=== PATIENT | male | born 1970 | race Caucasian/White ===

== ENCOUNTER 2018-07-04 14:30 | Emergency (ER) | payer OTHER, MEDICAID, SELFPAY ==
[2018-07-04 14:37] VITALS: BP 157/89; PULSE 60; RESP 24; TEMP 36.2; O2SAT 100; BMI 26.3
[2018-07-04 16:30] VITALS: BP 140/79; PULSE 67; O2SAT 99
[2018-07-04 17:00] VITALS: BP 142/79; PULSE 63; O2SAT 99
[2018-07-04 17:30] VITALS: BP 133/93; PULSE 74; O2SAT 99
--- NOTE | 2018-07-04 17:46 | DI.RAD.S_ITS ---
PROCEDURE: XR CERVICAL SPINE 2V OR 3V INDICATIONS: pain/spasm, no trauma TECHNIQUE: 4 view(s) of the cervical spine were acquired. COMPARISON: None. FINDINGS: Bones: No fractures or dislocations to the C7 level. The lateral masses of C1 appear intact on the odontoid view. No suspicious bony lesions. Soft tissues: No prevertebral soft tissue swelling. IMPRESSION: No acute fracture. No osseous lesion. If clinical suspicion and/or symptoms persist, further assessment with repeat plainfilms, or advanced imaging (e.g., CT, MRI, or bone scan) may be helpful for further assessment. Dictated by: Ezequiel Donahue M.D. on 07/04/2018 at 18:43 Approved by: Ezequiel Donahue M.D. on 07/04/2018 at 18:44
--- NOTE | 2018-07-04 17:54 | ED_ITS ---
HPI - Neck Pain/Injury <Hilaria Almonte PA-C - Last Filed: 07/04/18 22:16> General Chief Complaint: Neck Pain/Injury Stated Complaint: severe neck pain Time Seen by Provider: 07/04/18 17:30 Source: patient Mode of arrival: ambulatory Limitations: no limitations History of Present Illness HPI Narrative: This 47-year-old male complains of neck pain and spasm. He states that this started 6 days ago, he turned and felt a sharp pain in his neck, and states he could feel that through his forehead and ears were ringing. He states that at that time pain felt so severe he was vomiting intermittently for about 4 hours, but then seemed to start to get a little bit better so he has not sought treatment. He states that about 24 hours ago, this seemed to get worse again. He felt like it was related to barometric pressure as he is sensitive to that, but states it did not improve today so he came in. He states that he has chronic neck pain but has never sought evaluation or treatment for it. States that pain feels like it is in his central neck as well as the musculature. He states at times he feels like it will move across the neck and top of the shoulders. He denies weakness in his extremities, states he can have some occasional numbness in fingers bilaterally, none currently. He denies any fever or rash. He denies any groin numbness, bowel or bladder changes. He denies any specific trauma, eating and drinking normally Related Data Previous Rx's Medication Instructions Recorded diazepam 5 mg PO BID-TID PRN #5 tab 07/04/18 lidocaine 2 patch TOP DAILY #30 each 07/04/18 oxycodone-acetaminophen [Endocet] 1 tab PO Q6H #7 tab 07/04/18 Allergies Allergy/AdvReac Type Severity Reaction Status Date / Time No Known Drug Allergies Allergy Verified 07/04/18 16:35 Review of Systems <Hliaria Almonte PA-C - Last Filed: 07/04/18 22:16> Review of Systems ROS Unobtainable: All systems reviewed & are unremarkable except as noted in HPI and below PFSH <Hilaria Almonte PA-C - Last Filed: 07/04/18 22:16> Medical History (Updated 07/04/18 @ 20:11 by Hilaria Almonte PA-C) Anxiety and depression (Chronic) Chronic neck pain (Chronic) No pertinent family history (Chronic) Surgical History (Updated 07/04/18 @ 17:54 by Hilaria Almonte PA-C) No pertinent past surgical history (Chronic) Social History Smoking Status: Current every day smoker Social History Smoking Status: Current every day smoker Exam <Hilaria Almonte PA-C - Last Filed: 07/04/18 22:16> Narrative Exam Narrative: GENERAL APPEARANCE: Patient appears anxious, but in no acute distress. LUNGS: Clear to auscultation bilaterally. HEART: Rate and rhythm regular without murmur, normal S1 and S2, no S3 or S4. MUSCULOSKELETAL: Generalized tenderness over the cervical spine, paraspinal musculature, proximal trapezius insertions. He has full range of motion of the C-spine with some and point tenderness. Full range of motion of the upper extremities. No tenderness over the thoracic or lumbar spine. Normal sit to stand and gait. Strength 5/5 throughout bilateral upper extremities. NEUROLOGIC: Sensation is grossly intact over the extremities, extremity DTRs 2+ throughout Initial Vital Signs Initial Vital Signs: Vital Signs Temperature 97.2 F L 07/04/18 14:37 Pulse Rate 60 07/04/18 14:37 Respiratory Rate 24 07/04/18 14:37 Blood Pressure 157/89 H 07/04/18 14:37 Pulse Oximetry 100 07/04/18 14:37 <Robert Henning DO - Last Filed: 07/04/18 23:22> Initial Vital Signs Initial Vital Signs: Vital Signs Temperature 97.2 F L 07/04/18 14:37 Pulse Rate 60 07/04/18 14:37 Respiratory Rate 24 07/04/18 14:37 Blood Pressure 157/89 H 07/04/18 14:37 Pulse Oximetry 100 07/04/18 14:37 Course <Hilaria Almonte PA-C - Last Filed: 07/04/18 22:16> Additional Information: Patient has significant chronic neck pain. no evidence of neurologic compromise, no febrile illness, but has been worse for the last 6 days. He describes intermittent spasm sensation and also tension headache. he has taken benzodiazepines and Endocet in the past without problems and did get some relief with these along with lidocaine patches. Advised not to drive while on these medications, and he will see his PCP for follow-up this week as he may need further workup or referral depending on progress. He agreed to return if any acutely worsening symptoms Orders Ordered: ED Orders 07/04/18 17:46 XR cervical spine 2V or 3V Stat Discontinued Medications Diazepam (Valium) 5 mg PO NOW ONE Stop: 07/04/18 17:47 Last Admin: 07/04/18 17:55 Dose: 5 mg Diazepam (Valium) 5 mg PO NOW ONE Stop: 07/04/18 19:22 Last Admin: 07/04/18 19:37 Dose: 5 mg Ketorolac Tromethamine (Toradol) 60 mg IM NOW ONE Stop: 07/04/18 17:47 Last Admin: 07/04/18 17:55 Dose: 60 mg Lidocaine (Lidoderm) 2 each TOP NOW ONE Stop: 07/04/18 19:48 Last Admin: 07/04/18 19:52 Dose: 2 each Oxycodone/Acetaminophen (Percocet 5/325) 1 tab PO NOW ONE Stop: 07/04/18 19:22 Last Admin: 07/04/18 19:38 Dose: 1 tab Vital Signs - 8 hr 07/04/18 16:30 07/04/18 17:00 07/04/18 17:30 Pulse Rate 67 63 74 Blood Pressure [Right Arm] 140/79 142/79 H 133/93 H Pulse Oximetry 99 99 99 07/04/18 19:30 Pulse Rate 74 Blood Pressure [Right Arm] 144/86 H Pulse Oximetry 99 <Robert Henning DO - Last Filed: 07/04/18 23:22> Orders Ordered: ED Orders 07/04/18 17:46 XR cervical spine 2V or 3V Stat Discontinued Medications Diazepam (Valium) 5 mg PO NOW ONE Stop: 07/04/18 17:47 Last Admin: 07/04/18 17:55 Dose: 5 mg Diazepam (Valium) 5 mg PO NOW ONE Stop: 07/04/18 19:22 Last Admin: 07/04/18 19:37 Dose: 5 mg Ketorolac Tromethamine (Toradol) 60 mg IM NOW ONE Stop: 07/04/18 17:47 Last Admin: 07/04/18 17:55 Dose: 60 mg Lidocaine (Lidoderm) 2 each TOP NOW ONE Stop: 07/04/18 19:48 Last Admin: 07/04/18 19:52 Dose: 2 each Oxycodone/Acetaminophen (Percocet 5/325) 1 tab PO NOW ONE Stop: 07/04/18 19:22 Last Admin: 07/04/18 19:38 Dose: 1 tab Vital Signs - 8 hr 07/04/18 16:30 07/04/18 17:00 07/04/18 17:30 Pulse Rate 67 63 74 Blood Pressure [Right Arm] 140/79 142/79 H 133/93 H Pulse Oximetry 99 99 99 07/04/18 19:30 Pulse Rate 74 Blood Pressure [Right Arm] 144/86 H Pulse Oximetry 99 MDM - Neck Pain/Injury <Hilaria Almonte PA-C - Last Filed: 07/04/18 22:16> Imaging Data Cspine: Radiologist's impression: [address] [address] XRay Report Signed Patient: Tuan Tyler [facility]#: [id number] : 1970Acct:[id number] Age/Sex: 47 / MDate of Service: 07/04/18 Loc: ED Accession Number: [id number] Procedure: XR cervical spine 2V or 3V Ordering Provider: Hilaria Almonte P.A-C PROCEDURE: XR CERVICAL SPINE 2V OR 3V INDICATIONS: pain/spasm, no trauma TECHNIQUE: 4 view(s) of the cervical spine were acquired. COMPARISON: None. FINDINGS: Bones: No fractures or dislocations to the C7 level. The lateral masses of C1 appear intact on the odontoid view. No suspicious bony lesions. Soft tissues: No prevertebral soft tissue swelling. IMPRESSION: No acute fracture. No osseous lesion. If clinical suspicion and/or symptoms persist, further assessment with repeat plainfilms, or advanced imaging (e.g., CT, MRI, or bone scan) may be helpful for further assessment. Dictated by: Ezequiel Donahue M.D. on 07/04/2018 at 18:43 Approved by: Ezequiel Donahue M.D. on 07/04/2018 at 18:44 Discharge Plan Departure Patient Disposition: Home Clinical Impression: Neck and shoulder pain, Muscle spasm Discharge Date/Time: 07/04/18 20:25 Interventions: ED Discharge Assessment Last Done: 07/04/18 20:24 Instructions: DI for Neck Pain, DI for Muscle Spasm Activity Restrictions/Additional Instructions: Please return as we talked about if you have any acutely worsening symptoms, or new symptoms such as weakness in your extremities, numbness in your groin or inability to urinate. Otherwise, please follow-up with your PCP in the next day or two (call first thing tomorrow and let the office know that you were seen in the ED). You can use the diazepam for muscle spasm and the oxycodone/acetaminophen for pain as needed since you have used these in the past. Continue ibuprofen 800 mg every 8 hours as well. also please try the topical anesthetic patches for 12 hours daily since they seem to help somewhat tonight as well. Remember not to drive when taking the diazepam or oxycodone as it can make you sleepy. Prescriptions: New diazepam 5 mg tablet 5 mg PO BID-TID PRN (Reason: muscle spasm) Qty: 5 RF: 0 oxycodone-acetaminophen [Endocet] 5-325 mg tablet 1 tab PO Q6H Qty: 7 RF: 0 lidocaine 5 % adhesive patch,medicated 2 patch TOP DAILY Qty: 30 RF: 0 Referrals: Herminio King MD [Primary Care Provider] - <Robert Henning DO - Last Filed: 07/04/18 23:22> Cosign ED Attending Johnature Attestation: I was available for consultation during this patient's emergency department encounter
[2018-07-04] MEDS: KETOROLAC 60 MG/2 ML VIAL IM (17:55)
[2018-07-04] MEDS: diazePAM 5 MG TABLET PO ×2 (17:55→19:37)
--- NOTE | 2018-07-04 17:59 | PC.NURSE ---
Pt unable to sit still for xray. Just medicated pt. will try again after medication can work.
[2018-07-04 19:30] VITALS: BP 144/86; PULSE 74; O2SAT 99
[2018-07-04] MEDS: OXYCODONE/ACETAMINOPHEN 5/325 TABLET 1 TAB PO (19:38)
[2018-07-04] MEDS: LIDOCAINE PATCH 1 EACH ADH..PATCH 2 EACH TOP (19:52)
== END 2018-07-04 20:25 | disposition home or self-care (01) ==
PROVIDERS: Emergency Provider Internal Medicine; PCP Family Medicine
DX: M54.2 Cervicalgia (principal); M62.838 Other muscle spasm; R11.10 Vomiting, unspecified; G44.209 Tension-type headache, unspecified, not intractable
CPT/HCPCS: 72040; 96372; 99283; J1885

== ENCOUNTER → 2018-07-20 08:30 | Outpatient (CLI) | payer OTHER, MEDICAID, SELFPAY ==
--- NOTE | 2018-07-20 | DI.RAD.S_ITS ---
PROCEDURE: XR CERVICAL SPINE 2V OR 3V INDICATIONS: NECK PAIN, HEADACHE TECHNIQUE: 3 view(s) of the cervical spine were acquired. COMPARISON: [facility], RG, XR C-SPINE 4-6V, 07/02/2003, 4:09. [facility], CR, XR CERVICAL SPINE 2V OR 3V, 07/04/2018, 17:53. FINDINGS: Bones: No fractures or dislocations to the C7 level. The lateral masses of C1 appear intact on the odontoid view. No suspicious bony lesions. Multilevel degenerative endplate sclerosis and spurring. Diffuse facet arthropathy. Straightening of the normal cervical lordosis. Mild narrowing of the C2-C3, C5-C6 and C6-C7 disc spaces. Chronic ununited anterior endplate osteophyte at the C6-C7 level. Levocurvature noted. Soft tissues: No prevertebral soft tissue swelling. IMPRESSION: Mild diffuse cervical spondylosis and facet arthropathy with straightening of the normal lordosis. Mild levocurvature. No interval change since 07/04/18 Dictated by: Nghia Avina M.D. on 07/20/2018 at 9:31 Approved by: Nghia Avina M.D. on 07/20/2018 at 9:34
== END ==
PROVIDERS: PCP Family Medicine; Visit Provider Family Medicine
DX: R51 Headache (principal); M54.2 Cervicalgia; M47.812 Spondylosis without myelopathy or radiculopathy, cervical region; M48.02 Spinal stenosis, cervical region
CPT/HCPCS: 72040

== ENCOUNTER 2018-07-23 16:14 | Emergency (ER) | payer OTHER, MEDICAID, SELFPAY ==
[2018-07-23 16:19] VITALS: BP 138/83; PULSE 96; RESP 24; O2SAT 97
--- NOTE | 2018-07-23 16:29 | ED.GENADULT ---
HPI - General Adult General Chief complaint: Syncope Stated complaint: syncope / ? seizure Time Seen by Provider: 07/23/18 16:27 Source: patient and family Mode of arrival: EMS Limitations: no limitations History of Present Illness HPI narrative: 47-year-old otherwise healthy male here for evaluation of an episode where he became vertiginous and also was lightheaded. He states that he felt like he was going to pass out. He denied any headache at the time but his who is at bedside stated that he was complaining of a headache and was grabbing his head. It is reported the patient walked in to his bedroom and then fell forward. The next thing that the patient remembers is EMS loading him into their ambulance. He reports that over the past month he has had occasional episodes where he has headache and lightheadedness and neck pain. He has been seen here in the emergency department and also by his primary doctor. It appears during those visits that the focus has been on musculoskeletal etiologies of neck pain. He has not had a head CT in the past. Related Data Home Medications Medication Instructions Recorded Confirmed No Known Home Medications 07/23/18 07/23/18 Allergies Allergy/AdvReac Type Severity Reaction Status Date / Time No Known Drug Allergies Allergy Verified 07/04/18 16:35 Review of Systems Constitutional Denies fever(s) and Reports headache(s) Eyes Denies blurry vision and Denies change in vision ENT Ears, Nose, Mouth, and Throat: Denies dental pain, Reports vertigo, Reports dizziness, Denies ear discharge, Reports headache(s) and Reports disequilibrium Cardiovascular Denies chest pain, Denies edema, Denies palpitations and Denies dyspnea Respiratory Denies dyspnea Gastrointestinal Gastrointestinal: Denies abdominal pain, Denies nausea and Denies vomiting Musculoskeletal Denies myalgias, Denies arthralgias, Denies numbness and Denies tingling Integumentary/Breasts Denies lesions and Denies rash Neurologic Denies abnormal speech, Reports behavioral changes, Denies confusion, Reports vertigo, Reports dizziness, Reports headache(s), Denies focal weakness, Reports memory loss, Denies numbness, Denies restless legs, Denies tingling, Denies paresthesias and Reports disequilibrium Psychiatric Denies anxiety, Reports behavioral changes, Denies confusion and Reports memory loss Endocrine Denies palpitations Hematologic/Lymphatic Denies easy bleeding and Denies easy bruising Allergic/Immunologic Denies urticaria [facility] Medical History Anxiety and depression (Chronic) Chronic neck pain (Chronic) No pertinent family history (Chronic) Surgical History No pertinent past surgical history (Chronic) Social History Smoking Status: Current every day smoker Social History Smoking Status: Current every day smoker Exam Initial Vital Signs Initial Vital Signs: Vital Signs Pulse Rate 96 H 07/23/18 16:19 Respiratory Rate 24 07/23/18 16:19 Blood Pressure 138/83 07/23/18 16:19 Pulse Oximetry 97 07/23/18 16:19 Const General: cooperative, well developed, well groomed and No acute distress Orientation: alert, awake and oriented x3 HENMT Head: normal to inspection and normocephalic Nose: epistaxis (Dry blood from right nares) and external nose abnormal Face and sinus: normal facial exam Eyes Pupils: PERRL EOM: EOM intact bilaterally Resp Effort & Inspection: normal respiratory effort Auscultation: clear to auscultation bilaterally Cardio Rate: regular rate Rhythm: regular rhythm Pulses: radial pulses present GI Inspection: non-distended Palpation: soft and No firm Skin Lesions: no lesions Rashes: no rashes Neuro General: alert, awake and oriented x3 Cognition: normal cognition Speech: speech normal Extrem General: normal to inspection and capillary refill normal Psych Appearance: grossly normal and well kempt Scores GCS [place] coma scale eye opening: Spontaneous [place] coma scale verbal response: Orientated [place] coma scale motor response: Obey commands [place] coma scale total score: 15 Course Orders Ordered: ED Orders 07/23/18 16:05 Complete Blood Count AUTO DIFF Stat Comprehensive Metabolic Panel Stat Prothrombin Time INR Stat Troponin & CK Cardiac Panel Stat 07/23/18 16:24 EKG-12 Lead Stat 07/23/18 16:28 CT head/brain wo con Stat Vital Signs - 8 hr 07/23/18 16:19 Pulse Rate 96 H Respiratory Rate 24 Blood Pressure [Left Arm] 138/83 Pulse Oximetry 97 Medical Decision Making Lab Data Lab results reviewed: Yes I reviewed the patient's lab results. Result diagrams: 07/23/18 16:05 07/23/18 16:05 Lab Results 07/23/18 07/23/18 07/23/18 Range/Units 16:05 16:05 16:05 WBC 22.1 H (4.5-11.0) X10^3/uL RBC 4.81 (4.5-5.9) X10^6/uL Hgb 14.2 (13.5-17.5) g/dL Hct 43.1 (41-53) % MCV 89.7 (80-100) fL MCH 29.5 (26-34) PG MCHC 32.9 (30-36) % RDW 13.6 (11.6-14.8) % Plt Count 342 (150-400) X10^3/uL Neut % (Auto) 73.5 (50-75) % Lymph % (Auto) 21.2 L (25-40) % [place] % (Auto) 4.5 (3-14) % Eos % (Auto) 0.1 L (2-4) % Baso % (Auto) 0.7 (0-2) % Neut # (Auto) 59005 H (1653-3325) /uL Lymph # (Auto) 4700 H (3675-0562) /uL Pitt # (Auto) 1000 H (0-900) /uL Eos # (Auto) 0 (0-450) /uL Baso # (Auto) 200 H (0-100) /uL PT 12.2 (10.1-12.7) SECONDS INR 1.1 (0.9-1.3) Sodium 140 (137-145) mmol/L Potassium 3.1 L (3.4-5.1) mmol/L Chloride 101 (98-107) mmol/L Carbon Dioxide 22 (22-32) mmol/L BUN 10 (9-20) mg/dL Creatinine 0.90 (0.66-1.25) mg/dL Estimated GFR > 60.0 (>60) mL/min BUN/Creatinine Ratio 11.1 (6-22) Glucose 122 H (70-100) mg/dL Calcium 9.3 (8.4-10.2) mg/dL Total Bilirubin 0.4 (0.2-1.3) mg/dL AST 17 (17-59) IU/L ALT 16 L (21-72) IU/L Alkaline Phosphatase 152 H (38-126) U/L Total Creatine Kinase 40 L (55-170) U/L CK-MB (CK-2) TNP CK-MB (CK-2) Rel Index TNP Troponin I < 0.012 (0.01-0.034) ng/mL Total Protein 7.9 (6.3-8.2) g/dL Albumin 4.3 (3.5-5.0) g/dL Globulin 3.6 (1.7-4.1) g/dL Albumin/Globulin Ratio 1.2 (1.0-2.8) Imaging Data CT scan - head: Radiologist's impression: [address] [address] [address] Scan Report Signed Patient: Tuan Tyler MMR#: [id number] : 1970Acct:[id number] Age/Sex: 47 / MDate of Service: 07/23/18 Loc: ED Accession Number: [id number] Procedure: CT head/brain wo con Ordering Provider: Robert Henning D.O. PROCEDURE: CT HEAD/BRAIN WO CON INDICATIONS: Syncope TECHNIQUE: Noncontrast 4.5 mm thick angled axial sections acquired from the foramen magnum to the vertex, with coronal and sagittal reformats. For radiation dose reduction, the following was used: automated exposure control, adjustment of mA and/or kV according to patient size. COMPARISON: None. FINDINGS: Image quality: Excellent. CSF spaces: Basal cisterns are patent. Ventricles are normal in size and shape. Brain: There is acute intraparenchymal hematoma measuring approximately 3.2 x 2.1 x 5.6 cm in the inferomedial left frontal lobe. There is also subarachnoid hemorrhage interdigitating between frontal lobes along the medial aspect bilaterally, and small amount of subdural hematoma along the falx anteriorly and in the interhemispheric region. The hematoma with surrounding edema results in approximately 6 mm of [id number] midline shift. No intraventricular hemorrhage. No downward herniation. Skull and face: Calvarium and visualized facial bones are intact, without suspicious lesions. Sinuses: Small air-fluid levels present in both maxillary sinuses. IMPRESSION: 1. Acute left frontal intraparenchymal hematoma resulting in 6 mm of left to right midline shift. 2. Components of both anteromedial subarachnoid and midline subdural hematoma. 3. Small air-fluid levels in both maxillary sinuses. 4. Discussed with Dr. Henning in the emergency room at 1652 hrs. Dictated by: Lynda Patrick M.D. on 07/23/2018 at 16:47 Approved by: Lynda Patrick M.D. on 07/23/2018 at 16:55 ECG Data Attestation: I personally reviewed and interpreted this ECG as follows: Prior ECG tracings: not available for review Interpretation: Sinus rhythm LVH Normal QRS Normal QTC No ST T wave changes MDM Narrative Medical decision making narrative: Patient has a GCS of 15, has a known focal neurologic exam here in the emergency department. Systolic Blood pressure has been less than 140 since arrival here in the ER. CT scan shows intraparenchymal hemorrhage. Discussed the case with Dr. John with Neurology at [facility] who accepts the patient in transport. Patient is stable for transport. Will transported by air. Patient and informed transport. They expressed understanding and agreement. Discharge Plan Departure Patient Disposition: [facility] Clinical Impression: Acute intracerebral hemorrhage Prescriptions: No Action No Known Home Medications RF: 0 Referrals: Herminio King MD [Primary Care Provider] -
[2018-07-23 16:32] LABS: Add Manual Diff / Slide Review NO; Basophils Absolute Auto 200 /uL (0-100); Basophils Percent Auto 0.7 % (0-2); Eosinophils Absolute Auto 0 /uL (0-450); Eosinophils Percent Auto 0.1 % (2-4); Hematocrit 43.1 % (41-53); Hemoglobin 14.2 g/dL (13.5-17.5); Lymphocytes Absolute Auto 4700 /uL (1100-4500); Lymphocytes Percent Auto 21.2 % (25-40); Mean Corpuscular HGB Conc 32.9 % (30-36); Mean Corpuscular Hemoglobin 29.5 PG (26-34); Mean Corpuscular Volume 89.7 fL (80-100); Monocytes Absolute Auto 1000 /uL (0-900); Monocytes Percent Auto 4.5 % (3-14); Neutrophils Absolute Auto 16300 /uL (1500-7000); Neutrophils Percent Auto 73.5 % (50-75); Platelet Count 342 X10^3/uL (150-400); Red Blood Cell Count 4.81 X10^6/uL (4.5-5.9); Red Cell Distribution Width 13.6 % (11.6-14.8); White Blood Cell Count 22.1 X10^3/uL (4.5-11.0)
[2018-07-23 16:34] LABS: INR 1.1 (0.9-1.3); Prothrombin Time 12.2 SECONDS (10.1-12.7)
[2018-07-23 16:46] LABS: Alanine Aminotransferase 16 IU/L (21-72); Albumin 4.3 g/dL (3.5-5.0); Albumin Globulin Ratio 1.2 (1.0-2.8); Alkaline Phosphatase 152 U/L (38-126); Aspartate Aminotransferase 17 IU/L (17-59); BUN Creatinine Ratio 11.1 (6-22); Bilirubin Total 0.4 mg/dL (0.2-1.3); Blood Urea Nitrogen 10 mg/dL (9-20); Calcium 9.3 mg/dL (8.4-10.2); Carbon Dioxide 22 mmol/L (22-32); Chloride 101 mmol/L (98-107); Creatine Kinase 40 U/L (55-170); Estimated Glomerular Filt Rate > 60.0 mL/min (>60); Globulin 3.6 g/dL (1.7-4.1); Glucose 122 mg/dL (70-100); HEMOLYSIS < 15 (0-50); Potassium 3.1 mmol/L (3.4-5.1); Sodium 140 mmol/L (137-145); Total Protein 7.9 g/dL (6.3-8.2)
[2018-07-23 16:58] LABS: Troponin I < 0.012 ng/mL (0.01-0.034)
[2018-07-23 17:56] VITALS: BP 141/92; PULSE 86; RESP 26; O2SAT 96
== END 2018-07-23 18:20 | disposition short-term general hospital (02) ==
PROVIDERS: Emergency Provider Emergency Medicine; PCP Family Medicine
DX: I61.9 Nontraumatic intracerebral hemorrhage, unspecified (principal); R51 Headache; W19.XXXA Unspecified fall, initial encounter
CPT/HCPCS: 70450; 80053; 82550; 84484; 85025; 85610; 93005; 99282; 99285

== ENCOUNTER 2020-06-15 17:27 | Emergency (ER) | payer OTHER, MEDICAID, SELFPAY ==
[2020-06-15] VITALS (12 sets, daily range): BP systolic 131–148; BP diastolic 78–93; PULSE 63–92; RESP 18–24; TEMP 36.6–36.7; O2SAT 94–100
--- NOTE | 2020-06-15 17:27 | DI.CT.S_ITS ---
PROCEDURE: CT HEAD/BRAIN WO CON INDICATIONS: new onset tonic / clonic seizure TECHNIQUE: Noncontrast 4.5 mm thick angled axial sections acquired from the foramen magnum to the vertex, with coronal and sagittal reformats. For radiation dose reduction, the following was used: automated exposure control, adjustment of mA and/or kV according to patient size. COMPARISON: None. FINDINGS: Image quality: There is artifact associated with the metallic hardware. CSF spaces: Basal cisterns are patent. No extra-axial fluid collections. Ex vacuole dilatation can be seen of the anterior horn of the left lateral ventricle. Brain: Vascular coils can be seen within the region of the left A1 segment. Please correlate with known prior patient history. 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 No midline shift. No intracranial masses or hemorrhage. King-white matter interface is normal. Skull and face: Calvarium and visualized facial bones are intact, without suspicious lesions. Sinuses: Visualized sinuses and mastoids are clear. IMPRESSION: No imaging explanation is found for this patient's presenting symptoms. Left-sided vascular coils are seen, with associated streak artifact. There is a prior remote left frontal lobe infarction seen, with associated ex vacuo dilatation of the anterior horn of the left lateral ventricle. Dictated by: Guille Baron M.D. on 06/15/2020 at 16:45 Approved by: Guille Baron M.D. on 06/15/2020 at 16:46
--- NOTE | 2020-06-15 17:31 | DI.CT.S_ITS ---
PROCEDURE: CT ANGIO HEAD AND NECK INDICATIONS: History of aneurysm and coil TECHNIQUE: After the administration of intravenous contrast, 1 mm thick sections acquired from the aortic arch through the [place] of [place]. Post-contrast 4.5 mm thick sections then re-acquired from the foramen magnum to the vertex. 3-dimensional ropyhbq-xltgtldte-frzxopncub (MIP) and/or volume rendering reformats were acquired of the central intracranial vasculature and neck separately. COMPARISON: [facility], CT, CT HEAD/BRAIN WO CON, 07/23/2018, 16:31. FINDINGS: Image quality: There is artifact associated with the metallic hardware. This examination is limited by involuntary motion artifact. BRAIN: CSF spaces: Ex vacuo dilatation can be seen involving the anterior horn of the left lateral ventricle. Basal cisterns are patent. No extra-axial fluid collections. Brain: There is a remote left MARJ territory aneurysm seen. No midline shift. No intracranial bleeds or masses. King-white matter interface appears intact. Skull and face: Calvarium and facial bones appear intact, without suspicious lesions. Orbits appear normal. Sinuses: Sinuses and mastoids are clear. HEAD CT ANGIOGRAPHY: Anterior circulation: Within the region of the left A1 segment, vascular coils are seen, with associated streak artifact. Intracranial internal carotid arteries are normal in size and flow. The flow within the paired anterior cerebral arteries is normal and symmetric. The flow within the middle cerebral arteries is normal and symmetric. The anterior communicating artery is seen. No aneurysms are seen. Posterior circulation: Visualized portions of the vertebral arteries demonstrate normal caliber, and join to form a normal appearing basilar artery. Flow within the posterior cerebral arteries is normal and symmetric. No aneurysms are seen. NECK CT ANGIOGRAPHY: Carotid system: Incidental note is made of a common origin of the right brachiocephalic artery and the left common carotid artery (bovine type arch). This is considered to be a developmental variant of no clinical consequence. The origins of the common carotid arteries appear patent. The common carotid arteries demonstrate normal caliber and courses. The bifurcation regions are both widely patent. The internal carotid arteries demonstrate normal calibers. The internal carotid arteries are tortuous, particularly on the right. Posterior circulation: The origins of the vertebral arteries both appear widely patent. There is a direct origin of the left vertebral artery from the aortic arch, which is considered to be developmental variant. The more superior extracranial portions of both vertebral arteries also demonstrate normal courses and calibers. They join to form a normal appearing basilar artery. Soft tissues: Visualized neck soft tissues demonstrate no suspicious abnormalities. Bones: No suspicious bony lesions. Visualized cervical spine appears normally aligned. Moderate lower cervical spine degenerative changes are seen. IMPRESSION: Vascular coils can be seen within the region of the left A1 segment. Remote left anterior cerebral artery territory infarction. No significant intracranial arterial abnormality is seen. Within the arteries of the neck, no hemodynamically significant stenosis can be seen. Incidental note is made of: Bovine type aortic branching pattern. Direct origin of the left vertebral artery from the aortic arch. Any quantitative measurements of stenosis were performed using NASCET criteria. Dictated by: Guille Baron M.D. on 06/15/2020 at 16:54 Approved by: Guille Baron M.D. on 06/15/2020 at 17:00
[2020-06-15 17:46] LABS: Add Manual Diff / Slide Review NO; Basophils Absolute Auto 100 /uL (0-100); Basophils Percent Auto 0.3 % (0-2); Eosinophils Absolute Auto 200 /uL (0-450); Eosinophils Percent Auto 0.8 % (2-4); Hematocrit 48.5 % (41-53); Hemoglobin 15.9 g/dL (13.5-17.5); Lymphocytes Absolute Auto 9300 /uL (1100-4500); Lymphocytes Percent Auto 47.2 % (25-40); Mean Corpuscular HGB Conc 32.9 % (30-36); Mean Corpuscular Hemoglobin 30.9 PG (26-34); Mean Corpuscular Volume 93.8 fL (80-100); Monocytes Absolute Auto 1200 /uL (0-900); Monocytes Percent Auto 6.4 % (3-14); Neutrophils Absolute Auto 8900 /uL (1500-7000); Neutrophils Percent Auto 45.3 % (50-75); Platelet Count 219 X10^3/uL (150-400); Red Blood Cell Count 5.16 X10^6/uL (4.5-5.9); Red Cell Distribution Width 14.2 % (11.6-14.8); White Blood Cell Count 19.6 X10^3/uL (4.5-11.0)
--- NOTE | 2020-06-15 17:50 | ED_ITS ---
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 Patient had been in his normal state of health except for a mild headache when he then developed a generalized tonic-clonic seizure which was witnessed by his , she states it lasted upwards of 3 minutes followed by typical postictal phase. Patient's only prior seizure was associated with his prior intraparenchymal hemorrhage. He is not on any anti seizure medications. He denies any recent trauma, fever or chills. Any nausea, vomiting or diarrhea. Eighty dietary or medication change. He denies any alcohol abuse. He denies any ongoing symptoms and is back at baseline. He denies headache, blurred vision, trouble with speech or focal neurologic findings such as numbness, tingling or weakness. MD complaint: seizure Onset (ago): minute(s) Description of Episode: loss of consciousness Duration of episode: 3 -: minutes(s) Witnessed: yes - by bystander Trauma: No Seizure History: none Place: home Possible Precipitating Event: other Associated symptoms: denies other symptoms Treatments prior to arrival: none Related Data Previous Rx's Medication Instructions Recorded levetiracetam [Keppra] 1,000 mg PO BID #60 tab 06/15/20 Allergies Allergy/AdvReac Type Severity Reaction Status Date / Time No Known Drug Allergies Allergy Verified 07/04/18 16:35 Review of Systems Constitutional Constitutional: Denies chills, Denies fatigue, Denies fever(s), Denies frequent falls, Denies lethargy and Denies weakness Eyes Eyes: Denies change in vision, Denies eye discharge, Denies irritation and Denies loss of vision ENT Ears, Nose, Mouth, and Throat: Denies change in voice, Denies dizziness, Denies neck pain, Denies sore throat and Denies throat swelling Cardiovascular Cardiovascular: Denies chest pain, Denies irregular heart rhythm, Denies lightheadedness, Denies palpitations, Denies dyspnea, Denies dyspnea on exertion and Denies orthopnea Respiratory Respiratory: Denies cough, Denies dyspnea, Denies dyspnea on exertion and Denies wheezing Gastrointestinal Gastrointestinal: Denies abdominal pain, Denies change in bowel habits, Denies diarrhea, Denies nausea and Denies vomiting Musculoskeletal Musculoskeletal: Denies neck pain and Denies numbness Integumentary/Breasts Skin/Breast: Denies pruritus, Denies erythema, Denies rash and Denies wounds Neurologic Neurologic: Denies behavioral changes, Denies confusion, Denies dizziness, Denies frequent falls, Denies loss of vision, Denies numbness, Reports seizure- like activity and Denies weakness Psychiatric Psychiatric: Denies anxiety, Denies behavioral changes, Denies confusion, Denies depression, Denies homicidal ideation and Denies suicidal ideation Endocrine Endocrine: Denies fatigue, Denies flushing and Denies palpitations Hematologic/Lymphatic Hematologic/Lymphatic: Denies easy bruising Allergic/Immunologic Allergic/Immunologic: Denies urticaria, Denies throat swelling and Denies wheezing Patient History Medical History (Updated 06/15/20 @ 21:26 by Malcolm Faye DO) Anxiety and depression Chronic neck pain No pertinent family history Surgical History No pertinent past surgical history Social History Smoking Status: Current every day smoker Smoking Status: Current every day smoker alcohol intake frequency: 0-2 drinks per day Substance Use Type: marijuana Exam Narrative Exam Narrative: GENERAL: [49] year old patient appears stated age. Well- nourished, well-developed patient, in mild distress. HEAD: Atraumatic. Normocephalic. EYES: Pupils equal round and reactive. Extraocular motions intact. No scleral icterus. No injection or drainage. ENT: Nose without bleeding, purulent drainage. Throat without erythema, tonsillar hypertrophy or exudate. Airway patent. NECK: Trachea midline. Non tender CARDIOVASCULAR: Regular rate and rhythm without murmurs, gallops, or rubs. RESPIRATORY: Clear to auscultation. Breath sounds equal bilaterally. No wheezes, rales, or rhonchi. GASTROINTESTINAL: Abdomen soft, non-tender, nondistended. EXTREMITIES: No edema or joint tenderness. BACK: Nontender without deformity or crepitance. No flank tenderness. NEURO: AOx3. SKIN: No rash or erythema of visible areas NIH Stroke Scale 1a. LOC: Patient is alert and keenly responsive (0) 1b. LOC Questions: Patient answers both LOC questions accurately (0) 1c. LOC Commands: Patient performs both tasks correctly (0) 2. Best Gaze: Normal (0) 3. Visual: No visual loss (0) 4. Facial palsy: Normal symmetrical movements (0) 5. Motor arm: No drift (0) 6. Motor leg: No drift (0) 7. Limb ataxia: Absent (0) 8. Sensory: Normal (0) 9. Best language: No aphasia; normal (0) 10. Dysarthria: Normal (0) 11. Extinction and inattention: No abnormality (0) NIHSS: 0 Initial Vital Signs Initial Vital Signs: Vital Signs Pulse Rate 92 H 06/15/20 17:53 Respiratory Rate 24 06/15/20 17:53 Pulse Oximetry 95 06/15/20 17:53 Course Orders Ordered: ED Orders 06/15/20 17:27 CT head/brain w con Stat 06/15/20 17:30 CMP [Comprehensive Metabolic Panel] Stat COVID19 -Nasal swab/Pre-Proc Stat Complete Blood Count AUTO DIFF Stat Magnesium Stat Phosphorous Stat Prolactin Stat 06/15/20 17:31 CT angio head and neck Stat 06/15/20 19:50 Urine Drug Screen, Rapid Stat Discontinued Medications Diphtheria/Tetanus/Acell Pertussis (Tet,Diph,Pertuss(Acell),Vac/Pf 0.5 Ml Syringe) 0.5 ml IM .ONCE ONE Stop: 06/15/20 18:23 Last Admin: 06/15/20 18:24 Dose: Not Given Documented by: CHING Levetiracetam 1,000 mg/ Sodium (Chloride) 110 mls @ 440 mls/hr IV NOW ONE Stop: 06/15/20 21:10 Last Admin: 06/15/20 21:31 Dose: 440 mls/hr Documented by: TOSHIA Consultations Consultation #1: call to Neuro. Images pushed. Face sheet faxed. Significant delay in consultation due to multiple priority trauma cases just ahead of us. Time: 18:18 Consultation #2: [place] [facility] and suggests this is most likely a consequence of prior stroke. Recommends Keppra load and follow up with Neurosurgery clinic and also Neurology Clinic Consultation #3: [place] to [place] [facility] We have reviewed the history, physical, and other pertinent findings. He agrees with Keppra load and recommends Rx for Keppra 1000mg PO BID with follow up either [place] [facility] [place] or if it is easier to use a local service that would also be appropriate Vital Signs Vital signs: Vital Signs - 8 hr 06/15/20 18:00 06/15/20 18:30 06/15/20 18:31 Temperature Pulse Rate 88 81 79 Respiratory Rate 24 20 22 Blood Pressure 146/85 H 142/93 H 142/93 H Pulse Oximetry 95 94 96 06/15/20 19:00 06/15/20 19:01 06/15/20 19:30 Temperature Pulse Rate 75 77 74 Respiratory Rate 19 22 24 Blood Pressure 144/93 H 139/86 Pulse Oximetry 94 94 94 06/15/20 20:34 06/15/20 21:00 06/15/20 21:30 Temperature Pulse Rate 70 65 Respiratory Rate 24 23 Blood Pressure Pulse Oximetry 100 98 96 06/15/20 22:02 Temperature 97.9 F Pulse Rate 63 Respiratory Rate 18 Blood Pressure 148/78 H Pulse Oximetry 96 MDM - Seizure Lab Data Result diagrams: 06/15/20 17:30 06/15/20 17:30 Labs: Lab Results 06/15/20 06/15/20 06/15/20 Range/Units 17:30 17:30 17:30 WBC 19.6 H (4.5-11.0) X10^3/uL RBC 5.16 (4.5-5.9) X10^6/uL Hgb 15.9 (13.5-17.5) g/dL Hct 48.5 (41-53) % MCV 93.8 (80-100) fL MCH 30.9 (26-34) PG MCHC 32.9 (30-36) % RDW 14.2 (11.6-14.8) % Plt Count 219 (150-400) X10^3/uL Neut % (Auto) 45.3 L (50-75) % Lymph % (Auto) 47.2 H (25-40) % [place] % (Auto) 6.4 (3-14) % Eos % (Auto) 0.8 L (2-4) % Baso % (Auto) 0.3 (0-2) % Neut # (Auto) 8900 H (7092-9688) /uL Lymph # (Auto) 9300 H (5758-5180) /uL [place] # (Auto) 1200 H (0-900) /uL Eos # (Auto) 200 (0-450) /uL Baso # (Auto) 100 (0-100) /uL Sodium 142 (137-145) mmol/L Potassium 3.5 (3.4-5.1) mmol/L Chloride 106 (98-107) mmol/L Carbon Dioxide 10 L (22-32) mmol/L BUN 11 (9-20) mg/dL Creatinine 1.19 (0.66-1.25) mg/dL Estimated GFR > 60.0 (>60) mL/min BUN/Creatinine Ratio 9.2 (6-22) Glucose 132 H (70-100) mg/dL Calcium 9.8 (8.4-10.2) mg/dL Phosphorus 5.3 H (2.5-4.5) mg/dL Magnesium 2.5 H (1.6-2.3) mg/dL Total Bilirubin 0.5 (0.2-1.3) mg/dL AST 24 (17-59) IU/L ALT 26 (<50) IU/L Alkaline Phosphatase 122 (38-126) U/L Total Protein 8.6 H (6.3-8.2) g/dL Albumin 5.2 H (3.5-5.0) g/dL Globulin 3.4 (1.7-4.1) g/dL Albumin/Globulin Ratio 1.5 (1.0-2.8) Prolactin 51.2 H (3.7-17.9) ng/mL U Opiates 300ng/mL cut (Negative) Ur Oxycodone Screen (Negative) Urine Methadone Screen (Negative) Ur Barbiturates Screen (Negative) U Tricyclic Antidepress (Negative) Ur Phencyclidine Scrn (Negative) Ur Amphetamines Screen (Negative) U Methamphetamines Scrn (Negative) Ur MDMA Scrn (Ecstasy) (Negative) U Benzodiazepines Scrn (Negative) Urine Cocaine Screen (Negative) U Marijuana (THC) Screen (Negative) SARS-CoV-2 (PCR) (Negative) 06/15/20 06/15/20 Range/Units 17:30 19:50 WBC (4.5-11.0) X10^3/uL RBC (4.5-5.9) X10^6/uL Hgb (13.5-17.5) g/dL Hct (41-53) % MCV (80-100) fL MCH (26-34) PG MCHC (30-36) % RDW (11.6-14.8) % Plt Count (150-400) X10^3/uL Neut % (Auto) (50-75) % Lymph % (Auto) (25-40) % [place] % (Auto) (3-14) % Eos % (Auto) (2-4) % Baso % (Auto) (0-2) % Neut # (Auto) (6389-5638) /uL Lymph # (Auto) (1192-6947) /uL [place] # (Auto) (0-900) /uL Eos # (Auto) (0-450) /uL Baso # (Auto) (0-100) /uL Sodium (137-145) mmol/L Potassium (3.4-5.1) mmol/L Chloride (98-107) mmol/L Carbon Dioxide (22-32) mmol/L BUN (9-20) mg/dL Creatinine (0.66-1.25) mg/dL Estimated GFR (>60) mL/min BUN/Creatinine Ratio (6-22) Glucose (70-100) mg/dL Calcium (8.4-10.2) mg/dL Phosphorus (2.5-4.5) mg/dL Magnesium (1.6-2.3) mg/dL Total Bilirubin (0.2-1.3) mg/dL AST (17-59) IU/L ALT (<50) IU/L Alkaline Phosphatase (38-126) U/L Total Protein (6.3-8.2) g/dL Albumin (3.5-5.0) g/dL Globulin (1.7-4.1) g/dL Albumin/Globulin Ratio (1.0-2.8) Prolactin (3.7-17.9) ng/mL U Opiates 300ng/mL cut Negative (Negative) Ur Oxycodone Screen Negative (Negative) Urine Methadone Screen Negative (Negative) Ur Barbiturates Screen Negative (Negative) U Tricyclic Antidepress Negative (Negative) Ur Phencyclidine Scrn Negative (Negative) Ur Amphetamines Screen Negative (Negative) U Methamphetamines Scrn Negative (Negative) Ur MDMA Scrn (Ecstasy) Negative (Negative) U Benzodiazepines Scrn Negative (Negative) Urine Cocaine Screen Negative (Negative) U Marijuana (THC) Screen Positive H (Negative) SARS-CoV-2 (PCR) Negative (Negative) Urine Dip Bedside Urine Glucose Negative Bedside Urine Bilirubin - Negative Bedside Urine Ketone - Negative Urine Specific [place] 1.020 Bedside Urine Occult Blood - Negative Bedside Urine pH 6 Bedside Urine Protein - Negative Bedside Urine Urobilinogen - Negative Bedside Urine Nitrite - Negative Bedside Urine Leukocytes - Negative Esterase Imaging Data CT scan - head: Radiologist's Impression: Tuan Tyler 49 M [address] [id number] Scan ReportSigned Patient: Tuan Tyler MMR#: [id number]: 1970Acct:[id number]/Sex: 49 / MDate of Service: 06/15/20Loc: EDAccession Number: [id number] Procedure: CT angio head and neck Ordering Provider: Beba Santizo D.O. PROCEDURE: CT ANGIO HEAD AND NECK INDICATIONS: History of aneurysm and coil TECHNIQUE: After the administration of intravenous contrast, 1 mm thick sections acquired from the aortic arch through the [place] of [place]. Post-contrast 4.5 mm thick sections then re-acquired from the foramen magnum to the vertex. 3-dimensional ieyfgbk-jmcdfrndv-vbokmxsewu (MIP) and/or volume rendering reformats were acquired of the central intracranial vasculature and neck separately. COMPARISON: [facility], CT, CT HEAD/BRAIN WO CON, 07/23/2018, 16:31. FINDINGS: Image quality: There is artifact associated with the metallic hardware. This examination is limited by involuntary motion artifact. BRAIN: CSF spaces: Ex vacuo dilatation can be seen involving the anterior horn of the left lateral ventricle. Basal cisterns are patent. No extra-axial fluid collections. Brain: There is a remote left MARJ territory aneurysm seen. No midline shift. No intracranial bleeds or masses. King-white matter interface appears intact. Skull and face: Calvarium and facial bones appear intact, without suspicious lesions. Orbits appear normal. Sinuses: Sinuses and mastoids are clear. HEAD CT ANGIOGRAPHY: Anterior circulation: Within the region of the left A1 segment, vascular coils are seen, with associated streak artifact. Intracranial internal carotid arteries are normal in size and flow. The flow within the paired anterior cerebral arteries is normal and symmetric. The flow within the middle cerebral arteries is normal and symmetric. The anterior communicating artery is seen. No aneurysms are seen. Posterior circulation: Visualized portions of the vertebral arteries demonstrate normal caliber, and join to form a normal appearing basilar artery. Flow within the posterior cerebral arteries is normal and symmetric. No aneurysms are seen. NECK CT ANGIOGRAPHY: Carotid system: Incidental note is made of a common origin of the right br achiocephalic artery and the left common carotid artery (bovine type arch). This is considered to be a developmental variant of no clinical consequence. The origins of the common carotid arteries appear patent. The common carotid arteries demonstrate normal caliber and courses. The bifurcation regions are both widely patent. The internal carotid arteries demonstrate normal calibers. The internal carotid arteries are tortuous, particularly on the right. Posterior circulation: The origins of the vertebral arteries both appear widely patent. There is a direct origin of the left vertebral artery from the aortic arch, which is considered to be developmental variant. The more superior extracranial portions of both vertebral arteries also demonstrate normal courses and calibers. They join to form a normal appearing basilar artery. Soft tissues: Visualized neck soft tissues demonstrate no suspicious abnormalities. Bones: No suspicious bony lesions. Visualized cervical spine appears normally aligned. Moderate lower cervical spine degenerative changes are seen. IMPRESSION: Vascular coils can be seen within the region of the left A1 segment. Remote left anterior cerebral artery territory infarction. No significant intracranial arterial abnormality is seen. Within the arteries of the neck, no hemodynamically significant stenosis can be seen. Incidental note is made of: [place] type aortic branching pattern. Direct origin of the left vertebral artery from the aortic arch. Any quantitative measurements of stenosis were performed using NASCET criteria. Dictated by: Guille Baron M.D. on 06/15/2020 at 16:54 Approved by: Guille Baron M.D. on 06/15/2020 at 17:00 MDM Narrative Medical decision making narrative: Patient observed for quite some time and remains at baseline for the duration of his extended stay. We think our review neurology and neuro surgical consultants for their assistance with this case. Images and labs are very reassuring as is patient's physical exam. Patient and are in complete understanding and agreement with diagnosis and plan. They understand return precautions and have had questions answered to their apparent satisfaction. Critical Care Time Critical Care Time Critical Care Time: Yes Total Critical Care Time: 30 Attestation: The high probability of a clinically significant, sudden or life threatening deterioration of the [Neuro] system(s) required my full and direct attention, intervention and personal management. The aggregate critical care time was [30] minutes. This time is in addition to time spent performing reported procedures but includes the following: [x] Data Review and interpretation [x] Patient assessment and monitoring of vital signs [x] Documentation [x] Medication orders and management Discharge Plan Departure Patient Disposition: Home Clinical Impression: New onset seizure Instructions: DI for Seizure Disorder -- Adult Activity Restrictions/Additional Instructions: *You have been diagnosed with [acute new onset seizure. Lab work, exam, imaging are very reassuring. I have spoken with Neurosurgery and Neurology at [facility] as we discussed and they are in agreement with the following plan] *What to do: *Take medications as directed: Prescription was sent to [facility] at your request *Follow up with your primary care provider in 2-3 days, call for an appointment. Let them know you were seen in the Emergency Department and that we ask that you be seen in follow up. They will help you get a referral to Neurology. If you choose to follow up at [facility] the contact for Neurology Clinic is [phone]. Also, please call the Neurosurgery Clinic at [facility] tomorrow to setup follow up ([phone]) *Return to ER if you should have any new, worsening or concerning symptoms * until you are cleared by Neurology you cannot drive and are strongly encouraged to avoid activities such as swimming, bicycle riding or other scenarios which would be life threatening should you have another seizure. Prescriptions: New levetiracetam [Keppra] 1,000 mg tablet 1,000 mg PO BID Qty: 60 RF: 0 Referrals: Katelin Shaw MD [Physician] -
[2020-06-15 17:55] LABS: Magnesium 2.5 mg/dL (1.6-2.3)
[2020-06-15 17:56] LABS: Albumin 5.2 g/dL (3.5-5.0); Albumin Globulin Ratio 1.5 (1.0-2.8); Alkaline Phosphatase 122 U/L (38-126); Aspartate Aminotransferase 24 IU/L (17-59); BUN Creatinine Ratio 9.2 (6-22); Bilirubin Total 0.5 mg/dL (0.2-1.3); Blood Urea Nitrogen 11 mg/dL (9-20); Calcium 9.8 mg/dL (8.4-10.2); Carbon Dioxide 10 mmol/L (22-32); Chloride 106 mmol/L (98-107); Estimated Glomerular Filt Rate > 60.0 mL/min (>60); Globulin 3.4 g/dL (1.7-4.1); Glucose 132 mg/dL (70-100); HEMOLYSIS 18 (0-50); Phosphorous 5.3 mg/dL (2.5-4.5); Potassium 3.5 mmol/L (3.4-5.1); Sodium 142 mmol/L (137-145); Total Protein 8.6 g/dL (6.3-8.2)
--- NOTE | 2020-06-15 17:56 | PC.NURSE ---
Pt is oriented to self, place, and situation. Not oriented to time, unsure of day, month, or year. Reports that it is 2016. Pt does know that Mushtaq is president.
--- NOTE | 2020-06-15 17:59 | PC.NURSE ---
witnessed seizure in recliner at 1500 that lasted 3-4 minutes. Tonic clonic in nature. She reports he turned blue, she tried to turn him to his side to breathe. EMS were called to the scene and he was postictal but breathing on his own.. Has history of seizures 2 years ago when he had coil placed for aneurysm.
[2020-06-15 18:03] LABS: Alanine Aminotransferase 26 IU/L (<50)
[2020-06-15 18:12] LABS: Prolactin 51.2 ng/mL (3.7-17.9)
[2020-06-15 18:46] LABS: COVID19 -Nasal RAPID Negative (Negative)
[2020-06-15 20:12] LABS: UR Morphine/Opiate cutoff 300 Negative (Negative); Ur Creatinine Normal (Normal); Ur Specific Gravity Normal (Normal); Urine Amphetamines Negative (Negative); Urine Barbiturates Negative (Negative); Urine Benzodiazepines Negative (Negative); Urine Cocaine Negative (Negative); Urine MDMA Negative (Negative); Urine Methadone Negative (Negative); Urine Methamphetamines Negative (Negative); Urine Oxycodone Negative (Negative); Urine Phencyclidine Negative (Negative); Urine Tetrahydrocannabinol Positive (Negative); Urine Tricyclic Antidepressant Negative (Negative); Urine pH Normal (Normal)
[2020-06-15] MEDS: levETIRAcetam 1,000 MG in SODIUM CHLORIDE 0.9% 100 ML 440 ML IV (21:31)
--- NOTE | 2020-07-07 23:00 | PC.NURSE ---
Late entry: Levetiracetam infusion completed; 100mg infused; finished at 2146 on 06/15/20.
== END 2020-06-15 22:03 | disposition home or self-care (01) ==
PROVIDERS: Emergency Medicine; Emergency Provider Emergency Medicine
DX: I69.298 Other sequelae of other nontraumatic intracranial hemorrhage (principal); R56.9 Unspecified convulsions
CPT/HCPCS: 36415; 70460; 70496; 70498; 80053; 80305; 81003; 83735; 84100; 84146; 85025; 87635; 93005; 96374; 99284; 99285; C9803; J1953